=== PATIENT | female | born 1980 | race Caucasian/White ===

== ENCOUNTER 2020-11-21 14:27 | Emergency (ER) | payer OTHER ==
[~2020-11-21] VITALS: Ht 170.2 cm; Wt 79.1 kg
--- NOTE | 2020-11-21 14:31 | PHYS DOC ---
Adult General Chief Complaint Chief Complaint: ALLERGIC REACTION HPI HPI Patient is a 40-year-old female who presents to the emergency department today complaining of an allergic reaction to her Pfizer COVID-19 immunization today at approximately 1345, she reports receiving an IM injection to the left deltoid. Patient states within 5 minutes of receiving the injection she started feeling her head tingle, shortly after that she felt her throat getting stiff and sore, started having a sensation she needs to clear her throat, felt a sensation that her tongue was swelling. Patient states she went home to find some Benadryl, was unable to find Benadryl and decided to come to the emergency department for evaluation. Patient denies heart palpitations however reports she has a history of postural orthostatic tachycardia syndrome and her heart races often so she does not notice it. Patient denies chest pain, headaches, shortness of breath however feels as if she needs to catch her breath and cannot and reiterates that she is not short of breath. Patient denies recent fever or chills, nausea, vomiting, diarrhea, abdominal pains. Patient denies aches to her muscles, denies itching, denies hives, denies skin rashes. Patient denies any other physical complaints or physical symptoms. Patient reports an allergy to sulfa, aspirin, yellow dye. Patient reports she is on Zyrtec, atenolol, BuSpar, Wellbutrin, Synthroid, methotrexate, and Humira. Patient reports a history of POTS, Graves' disease, depression and anxiety. Review of Systems Review of Systems 14 body systems of review of systems have been reviewed. See HPI for pertinent positives and negative responses, otherwise all other systems are negative, nonpertinent or noncontributory. Physical Exam Physical Exam Constitutional: Well developed, well nourished, no acute distress, non-toxic appearance. 40-year-old female in no apparent distress. Vital signs within normal limits. Patient clearing throat during physical exam without production of sputum. HENT: Normocephalic, atraumatic, bilateral external ears normal, oropharynx moist, no oral exudates, nose normal. No Flushing, laryngeal edema, generalized hives/urticaria, angioedema of the tongue or lips, cutaneous/conjunctival pruritus, or swelling of awej-abclbh-iliom appreciated. No trismus, no drooling appreciated. Eyes: PERRLA, EOMI, conjunctiva normal, no discharge. Neck: Normal range of motion, no tenderness, supple, no stridor. No meningismus signs, no nuchal rigidity, no C-spine tenderness appreciated. Cardiovascular:Heart rate tachycardic rhythm during physical exam heart rate 110 bpm, no murmur, heart sounds S1-S2 to auscultation. No dizziness, weakness, syncopal episode, hypotonia, palpitations, or hypotension appreciated. Lungs & Thorax: Bilateral breath sounds clear to auscultation, no adventitious lung sounds appreciated. There was no nasal congestion, throat tightness, voice change, wheezing, shortness of breath, cough, hoarseness, or stridor appreciated. No bronchospasm signs appreciated. Abdomen: Bowel sounds normal, soft, no tenderness, no masses, no pulsatile mass es. GI: No complaints of dysphagia, no signs of N/V, no diarrhea, no bloating, no cramps. Skin: Warm, dry, no erythema, no rash. No urticaria of the palms, soles, inner thighs, no generalized erythema, no pruritic complaints. Light pink urticaria eruptions between breasts and on bilateral forearms. Back: No tenderness, no CVA tenderness. Extremities: No tenderness, no cyanosis, no clubbing, ROM intact, no edema. Distal cap refill less than 2 seconds. Moves all extremities well. Neurologic: Alert and oriented X 3, normal motor function, normal sensory function, no focal deficits noted. Psychologic: Affect normal, judgement normal, mood normal. EKG EKG EKG performed at 1442 by house radiology staff shows a normal sinus rhythm without ectopy, heart rate 86 bpm, NE interval 0.188, QTc interval 0.436, no acute STEMI, no ACS, no acute ischemia appreciated, EKG interpreted by ED attending physician Dr. Llanos Radiology/Procedures Radiology/Procedures PATIENT: UNIQUE GASTELUM ACCOUNT: [id number] : 1980 LOCATION: ER AGE: 40 SEX: F EXAM STATUS: REG ER ORD. PHYSICIAN: GIOVANI NORRIS APRN REASON: COUGH, ALLERGIC REACTION PROCEDURE: CHEST PA & LATERAL PA and lateral chest. HISTORY: Cough, allergic reaction PA and lateral views were taken of the chest. There is no pneumothorax or pleural effusion. Lungs are clear. Heart is normal in size. IMPRESSION: 1. No acute chest disease. Electronically signed by: Rodo Landis MD (11/21/2020 3:14 PM) [facility] DICTATED AND SIGNED BY: RODO LANDIS MD DATE: 11/21/20 1513 CC: GIOVANI NORRIS APRN; NON,STAFF ~MTH0 0 Heart Score C/O Chest Pain: No Risk Factors: Risk Factors: DM, Current or recent (<one month) smoker, HTN, HLP, family history of CAD, obesity. Risk Scores: Risk Factors: DM, Current or recent (<one month) smoker, HTN, HLP, family history of CAD, obesity. Course & Med Decision Making Course & Med Decision Making Pertinent Labs and Imaging studies reviewed. (See chart for details) 40-year-old female, vital signs reviewed, presents to the emergency department complaining of allergic reaction after receiving her second dose of Pfizer COVID-19 immunization IM injection to the left deltoid. Physical examination concerning of allergic reaction. Patient clearing throat, oral examination did not show any signs of acute edema or swelling. We will treat with IM 0.3 mg epi injection, p.o. prednisone, IV Benadryl, IV prednisone, IV normal saline, albuterol nebulized treatment. CBC, BMP, EKG related to tachycardia, monitor heart rate/5-lead EKG/O2 saturation/noninvasive blood pressure. Chest x-ray PA and lateral. Epinephrine injection administered by ED nursing staff at 1446. Discussed with patient will monitor for at least 4 hours for reexacerbation of allergic reaction symptoms. Patient is amenable to this plan. Patient serum potassium low at 2.5. Patient is having no cardiac event complaints, EKG normal without ST changes, will treat with 40 p.o. potassium x2 doses. Reexamination of the patient, patient continues to be in no apparent distress, is nontoxic in appearance, all urticaria described in physical examination has resolved. Patient states she feels much better. After several reevaluations of patient, patient remains nontoxic in appearance, no reexacerbation of acute allergic reaction signs and symptoms. Discussed with patient EpiPen use, patient states she has an EpiPen at home and has prescriptions for more. Will give prescription for prednisone 20 mg x 5 days, discussed with patient low serum potassium of 2.5, also discussed patient taking potassium supplement at home. Discussed strict return to emergency department precautions and concerns. Patient gave verbal understanding of discharge home instructions, follow-up with PCP tomorrow for reevaluation, return to ER precautions and concerns, home medication use, had no further questions or concerns, was discharged home without incident. Diagnosis: acute allergic reaction most likely to IM injection of Pfizer COVID- 19 vaccine. Very low probability of an environmental reaction or idiopathic reaction. Very low likelihood of angioedema to JHON inhibitors as patient does not ingest JHON inhibitors, very low likelihood of malignant carcinoid syndrome, mastocytosis, pheochromocytoma, or asthma. Dragon Disclaimer Dragon Disclaimer This electronic medical record was generated, in whole or in part, using a voice recognition dictation system. Departure Departure: Impression: Primary Impression: Allergic reaction Disposition: 01 DC HOME SELF CARE/HOMELESS Condition: GOOD Referrals: FRANCES BHAKTA Additional Instructions: Please take prescriptions as directed, follow-up with your primary care doctor tomorrow for reevaluation, please return to the emergency department immediately for worsening symptoms or other concerns. EMERGENCY DEPARTMENT GENERAL DISCHARGE INSTRUCTIONS Thank you for coming to [facility] (ED) today and trusting us with you care. We trust that you had a positivie experience in our Emergency Department. If you wish to speak to the department management, you may call the director at [phone]. YOUR FOLLOW UP INSTRUCTIONS ARE FOLLOWS: 1. Do you have a private Doctor? If you do not have a private doctor, please ask for a resource list of physicians or clinics that may be able to assist you with follow up care. 2. The Emergency Physician has interpreted your x-rays. The X-Ray specialist will also review them. If there is a change in the findings, you will be notified in 48 hours when at all possible. 3. A lab test or culture has been done, your results will be reviewed and you will be notified if you need a change in treatment. ADDITIONAL INSTRUCTIONS AND INFORMATION: 1. Your care today has been supervised by a physician who is specially trained in emergency care. Many problems require more than one evaluation for a complete diagnosis and treatment. We recommend that you schedule your follow up appointment as recommended to ensure complete treatment of you illness or injury. If you are unable to obtain follow up care and continue to have a problem, or if your condition worsens, we recommend that you return to the ED. 2. We are not able to safely determine your condition over the phone nor are we able to give sound medical advice over the phone. For these safety reasons, if you call for medical advice we will ask you to come to the ED for further evaluation. 3. If you have any questions regarding these discharge instructions please call the ED at [phone]. SAFETY INFORMATION: In the interest of safety, wellness, and injury prevention; we encourage you to wear your sealbelt, if you smoke; quite smoking, and we encourage family to use a protective helmet for bicycling and other sporting events that present an increased risk for head injury. IF YOUR SYMPTOMS WORSEN OR NEW SYMPTOMS DEVELOP, OR YOU HAVE CONCERNS ABOUT YOUR CONDITION; OR IF YOUR CONDITION WORSENS WHILE YOU ARE WAITING FOR YOUR FOLLOW UP APPOINTMENT; EITHER CONTACT YOUR PRIMARY CARE DOCTOR, THE PHYSICIAN WHOSE NAME AND NUMBER YOU WERE GIVEN, OR RETURN TO THE ED IMMEDIATELY. Scripts Albuterol Sulfate (PROAIR HFA INHALER) 8.5 Gm Hfa.aer.ad 2 PUFF IH PRN Q4-6HRS PRN for wheezing for 21 Days, #1 INHALER 0 Refills as needed for wheezing Prov: GIOVANI NORRIS APRN 11/21/20 Prednisone (PREDNISONE) 20 Mg Tablet 1 TAB PO DAILY for allergies for 5 Days, #5 TAB 0 Refills Prov: GIOVANI NORRIS APRN 11/21/20 Problem Qualifiers Primary Impression: Allergic reaction Encounter type: initial encounter Qualified Codes: T78.40XA - Allergy, unspecified, initial encounter GIOVANI NORRIS APRN Nov 21, 2020 14:31
[2020-11-21] MEDS ORDERED: FAMOTIDINE 20 MG/2 ML VIAL IVP ONE (14:45)
[2020-11-21] MEDS ORDERED: IV NORMAL SALINE 1,000ML 1,000 ML IV ONE (14:45)
[2020-11-21] MEDS ORDERED: predniSONE 20 MG TABLET PO ONE (14:45)
[2020-11-21] MEDS ORDERED: ALBUTEROL SULFATE 2.5 MG/3 ML NEBU. NEB ONE (14:45)
[2020-11-21] MEDS ORDERED: diphenhydrAMINE 50 MG/ML VIAL IVP ONE (14:45)
--- NOTE | 2020-11-21 15:05 | EKG ---
[address] [address] Test Date: 2020-11-21 Test Time: 14:42:27 Pat Name: UNIQUE GASTELUM Department: Room: Gender: F Time Motion Analyst: JUAN LUIS : 1980 Requested By: GIOVANI NORRIS Order Number: [id number] Reading MD: Measurements Intervals [place] Rate: 86 P: 0 [place]: 118 QRS: 54 QRSD: 88 T: 41 QT: 362 QTc: 436 Interpretive Statements SINUS RHYTHM NORMAL ECG RI6.02 No previous ECG available for comparison
--- NOTE | 2020-11-21 15:16 | RAD ---
PA and lateral chest. HISTORY: Cough, allergic reaction PA and lateral views were taken of the chest. There is no pneumothorax or pleural effusion. Lungs are clear. Heart is normal in size. IMPRESSION: 1. No acute chest disease. Electronically signed by: Rodo Landis MD (11/21/2020 3:14 PM) [facility]
[2020-11-21 15:57] LABS: BASO # 0.1 x10^3/uL (0.0-0.2); BASO % 1 % (0-3); EOS # 0.2 x10^3/uL (0.0-0.7); EOS % 2 % (0-3); HEMATOCRIT 41.4 % (36.0-47.0); HEMOGLOBIN 13.7 g/dL (12.0-15.5); LYMPH # 3.4 x10^3/uL (1.0-4.8); LYMPH % 53 % (24-48); MEAN CORPUSCULAR HEMOGLOBIN 31 pg (25-35); MEAN CORPUSCULAR HGB CONC 33 g/dL (31-37); MEAN CORPUSCULAR VOLUME 92 fL (79-100); MONO # 0.4 x10^3/uL (0.0-1.1); MONO % 7 % (0-9); NEUT # 2.4 x10^3uL (1.8-7.7); NEUT % 37 % (31-73); PLATELET COUNT 257 x10^3/uL (140-400); RED BLOOD COUNT 4.48 x10^6/uL (3.50-5.40); RED CELL DISTRIBUTION WIDTH 13.4 % (11.5-14.5); WHITE BLOOD COUNT 6.4 x10^3/uL (4.0-11.0)
[2020-11-21 15:58] LABS: CALCIUM 8.4 mg/dL (8.5-10.1); CREATININE 0.7 mg/dL (0.6-1.0); GFR 92.7
[2020-11-21 16:06] LABS: POTASSIUM 2.5 mmol/L (3.5-5.1)
[2020-11-21] MEDS ORDERED: POTASSIUM CHLORIDE 20 MEQ TABLET.ER. PO ONE ×3 (16:15→18:15)
[2020-11-21] MEDS ORDERED: PRED20TA PO (18:13)
[2020-11-21] MEDS ORDERED: ALBU2.5V8 IH (18:19)
[2020-11-21 18:24] VITALS: BP 128/72
== END 2020-11-21 18:26 | disposition home or self-care (01) ==
LOC: ER 14:27
DX: T78.49XA Other allergy, initial encounter (principal); R20.2 Paresthesia of skin; Y84.8 Other medical procedures as the cause of abnormal reaction of the patient, or of later complication, without mention of misadventure at the time of the procedure; Y92.89 Other specified places as the place of occurrence of the external cause
CPT/HCPCS: 36415; 71046; 80048; 85025; 93005; 94640; 96361; 96372; 96374; 96375; 99285; J0171; J1200; J3490; J7030; J7512; J7613